=== PATIENT | female | born 1990 | race Caucasian/White ===

== ENCOUNTER 2020-05-27 17:47 | Emergency (ER) | payer OTHER ==
[~2020-05-27] VITALS: Ht 162.6 cm; Wt 81.7 kg
[2020-05-27] MEDS ORDERED: LEVO-T100 MCG PO (17:56)
[2020-05-27] MEDS ORDERED: XANAX 0.5 MG0.5 MG PO (21:21)
[2020-05-27 21:29] VITALS: BP 101/63
== END 2020-05-27 21:29 | disposition home or self-care (01) ==
LOC: M.ERS 17:47
DX: F41.0 Panic disorder [episodic paroxysmal anxiety] (principal); F41.9 Anxiety disorder, unspecified; F32.9 Major depressive disorder, single episode, unspecified; Z91.040 Latex allergy status